=== PATIENT | female | born 1975 | race Caucasian/White ===

== ENCOUNTER 2017-06-12 02:35 | Emergency (ER) | payer BC ==
[~2017-06-12] VITALS: Ht 160 cm; Wt 58.5 kg
[2017-06-12 02:40] VITALS: Ht 160 cm; Wt 58.5 kg
[2017-06-12] MEDS ORDERED: RANI150T9 PO (02:59)
[2017-06-12] MEDS ORDERED: PRED20TA PO (02:59)
[2017-06-12] MEDS ORDERED: BEN25 PO (02:59)
[2017-06-12] MEDS ORDERED: METHYLPREDNISOLONE 125 MG INJ IM ONE (03:00)
--- NOTE | 2017-06-12 03:02 | ERD ---
ER Documentation Chief Complaint Date/Time DATE: 06/12/17 TIME: 03:00 Chief Complaint Generalized body rash HPI 41-year-old female otherwise healthy with no known allergies presents emergency department with a generalized pruritic rash is started last night around 6 PM after eating dinner. She states that she ate ground turkey salad and chicken, nothing new with soy milk. He developed a pruritic rash that was on her trunk and extremities peer she states that it got worse after she was trying to sleep and it was very hot in her home. She has not had any trouble swallowing, shortness of breath. She denies any new foods, medications, lotions or creams or allergens. ROS All systems reviewed and are negative except as per history of present illness. Medications Home Meds Active Scripts Diphenhydramine Hcl* (Benadryl*) 25 Mg Cap, 1-2 CAP PO Q6, #30 CAP Prov:RILEY MCGUIRE PA-C 06/12/17 Ranitidine Hcl* (Zantac*) 150 Mg Tablet, 150 MG PO BID Y for EPIGASTRIC PAIN, # 10 TAB Prov:RILEY MCGUIRE PA-C 06/12/17 Prednisone* (Prednisone*) 20 Mg Tab, 40 MG PO DAILY for 4 Days, TAB Prov:RILEY MCGUIRE PA-C 06/12/17 Allergies Allergies: Coded Allergies: No Known Allergy (Unverified , 06/12/17) PMhx/Soc Medical and Surgical Hx: pt denies Medical Hx, pt denies Surgical Hx History of Surgery: No Anesthesia Reaction: No Hx Neurological Disorder: No Hx Respiratory Disorders: No Hx Cardiac Disorders: No Hx Psychiatric Problems: No Hx Miscellaneous Medical Probl: No Hx Alcohol Use: Yes (SOCIAL ) Hx Substance Use: No Hx Tobacco Use: No Smoking Status: Never smoker Physical Exam Vitals Vital Signs Date Time Temp Pulse Resp B/P Pulse Ox O2 Delivery O2 Flow Rate FiO2 06/12/17 02:40 97.8 77 18 105/52 98 Physical Exam General: Well-developed, well-nourished. The patient appears in no acute distress. HEENT: Head is normocephalic, atraumatic. No scleral icterus. Throat is clear, no angioedema. Neck: Supple. Nontender. Lungs: Clear to auscultation. Normal air movement. Heart: Regular rate and rhythm. S1 and S2 are normal. No murmurs, gallops, or rubs. Abdomen: Soft, nontender, nondistended. Bowel sounds are normoactive. Extremities: No clubbing or cyanosis. Normal pulses. Moving extremities x 4. No weakness. Neurologic: Alert and oriented 3. No focal deficits. Skin: Scattered blanchable urticaria, on the trunk, arms and legs Results 24 hrs Current Medications Medications (Trade) Dose Ordered Sig/Irma Route PRN Reason Start Time Stop Time Status Last Admin Dose Admin Methylprednisolone Sodium Succinate (Solu-Medrol) 80 mg ONCE ONCE IM 06/12/17 03:00 06/12/17 03:01 Procedures/MDM ED course: Patient states that she was driving home, she was given Solu-Medrol intramuscularly, she will be given a prescription to take Benadryl. Medical decision making: This 41-year-old female comes in with a local allergic reaction, patient is presenting with hives at this time. She does not have any systemic persistent signs of allergy, no angioedema or respiratory distress. This does not appear to be any infectious origin, patient is stable for outpatient management. Departure Diagnosis: Primary Impression: Urticaria Condition: Good Patient Instructions: Hives Additional Instructions: Call your primary care doctor TOMORROW for an appointment during the next 1-2 days.See the doctor sooner or return here if your condition worsens before your appointment time. RILEY MCGUIRE PA-C Jun 12, 2017 03:02
== END 2017-06-12 03:15 | disposition home or self-care (01) ==
LOC: FTE 02:35
DX: L50.9 Urticaria, unspecified (principal)
CPT/HCPCS: 96372; 99284; J2930